=== PATIENT | male | born 1995 | race Caucasian/White ===

== ENCOUNTER 2017-11-27 13:54 | Emergency (ER) | payer SELFPAY ==
--- NOTE | 2017-11-27 15:34 | C.PDOC ---
Time Seen by Provider: 11/27/17 14:20 Chief Complaint (Nursing): Headache History Per: Patient Onset/Duration Of Symptoms: Days (about 1 month), Intermittent Episodes Current Symptoms Are (Timing): Still Present Severity: Moderate Quality: "Pain" Associated Symptoms: Nausea Additional History Per: Prior Records Past Medical History Reviewed: Historical Data, Nursing Documentation, Vital Signs Vital Signs: Last Vital Signs Temp 98.4 F 11/27/17 14:05 Pulse 83 11/27/17 14:05 Resp 18 11/27/17 14:05 BP 134/84 11/27/17 14:05 Pulse Ox 98 11/27/17 15:34 - Medical History PMH: Anxiety, Depression Surgical History: No Surg Hx Family History: States: Unknown Family Hx - Social History Hx Alcohol Use: No Hx Substance Use: No - Immunization History Hx Tetanus Toxoid Vaccination: (unk) Hx Influenza Vaccination: No Hx Pneumococcal Vaccination: (unk) Review Of Systems Except As Marked, All Systems Reviewed And Found Negative. Constitutional: Negative for: Fever Eyes: Negative for: Vision Change ENT: Negative for: Nose Congestion Cardiovascular: Negative for: Chest Pain Respiratory: Negative for: Shortness of Breath Gastrointestinal: Positive for: Nausea. Negative for: Vomiting Musculoskeletal: Negative for: Neck Pain Skin: Negative for: Rash Neurological: Positive for: Headache. Negative for: Weakness, Numbness Psych: Negative for: Suicidal ideation Physical Exam - Physical Exam Appears: Non-toxic, No Acute Distress Skin: Normal Color, Warm, Dry, No Rash Head: Atraumatic, Normacephalic Eye(s): bilateral: Normal Inspection, PERRL, EOMI Oral Mucosa: Moist Neck: Normal ROM, Supple Cardiovascular: Rhythm Regular Respiratory: Normal Breath Sounds, No Accessory Muscle Use Gastrointestinal/Abdominal: Soft, No Tenderness, No Distention Back: No CVA Tenderness Extremity: Normal ROM, No Deformity Neurological/Psych: Oriented x3, Normal Speech, Normal Cognition, Normal Motor, Normal Sensation ED Course And Treatment O2 Sat by Pulse Oximetry: 98 Pulse Ox Interpretation: Normal - CT Scan/US CT head Other Rad Studies (CT/US): Read By Radiologist, Radiology Report Reviewed CT/US Interpretation: IMPRESSION: No acute intracranial pathology. Reassessment Condition: Improved Disposition Counseled Patient/Family Regarding: Studies Performed, Diagnosis, Need For Followup - Disposition Referrals: [facility] [Outside] Disposition: HOME/ ROUTINE Disposition Time: 15:46 Condition: IMPROVED Additional Instructions: Follow up in the clinic for further evaluation and treatment. Return to the ER if you develop weakness, numbness, vomiting, worsening of symptoms or if you have any other concerns. Instructions: Headache, Adult (DC) - Clinical Impression Clinical Impression: Headache
--- NOTE | 2017-11-27 15:39 | CT ---
Date of service: 11/27/2017 PROCEDURE: CT HEAD WITHOUT CONTRAST. HISTORY: Frontal headaches persistent x 1 month COMPARISON: None available. TECHNIQUE: Axial computed tomography images were obtained through the head/brain without intravenous contrast. Radiation dose: Total exam DLP = 1247.7 mGy-cm. This CT exam was performed using one or more of the following dose reduction techniques: Automated exposure control, adjustment of the mA and/or kV according to patient size, and/or use of iterative reconstruction technique. FINDINGS: HEMORRHAGE: No intracranial hemorrhage. BRAIN: No mass effect or edema. No atrophy or chronic microvascular ischemic changes. VENTRICLES: Unremarkable. No hydrocephalus. CALVARIUM: Unremarkable. PARANASAL SINUSES: Unremarkable as visualized. No significant inflammatory changes. MASTOID AIR CELLS: Unremarkable as visualized. No inflammatory changes. OTHER FINDINGS: None. IMPRESSION: No acute intracranial pathology.
[2017-11-27 15:57] VITALS: BP 124/78; PULSE 86; RESP 16; TEMP 98.8; O2SAT 100
== END 2017-11-27 15:55 | disposition home or self-care (01) ==
LOC: C.ER 13:54
DX: R51 Headache (principal)